=== PATIENT | male | born 1950 | race Caucasian/White ===

== ENCOUNTER 2019-07-08 11:46 | Emergency (ER) | payer OTHER ==
[~2019-07-08] VITALS: Ht 180.3 cm; Wt 79.4 kg
== END 2019-07-08 17:04 | disposition home or self-care (01) ==
LOC: ER 11:46
DX: S80.12XA Contusion of left lower leg, initial encounter (principal); W18.39XA Other fall on same level, initial encounter; Y93.89 Activity, other specified; Y92.89 Other specified places as the place of occurrence of the external cause; Y99.8 Other external cause status

== ENCOUNTER 2024-10-24 08:32 | Outpatient (CLI) | payer OTHER | END 2024-10-24 08:41 | disposition home or self-care (01) | LOC: SONOGRAMA 08:32 | PROVIDERS: ATTEND Internal Medicine | DX: N40.1 Benign prostatic hyperplasia with lower urinary tract symptoms (principal); R31.9 Hematuria, unspecified ==